=== PATIENT | female | born 1995 | race African-American/Black ===

== ENCOUNTER 2022-08-27 23:35 | Emergency (ER) | payer MEDICAID, SELFPAY ==
[2022-08-27 23:39] VITALS: BP 120/86; PULSE 72; RESP 16; TEMP 36.9; O2SAT 97; BMI 31.4
--- NOTE | 2022-08-28 00:13 | CRLHL7_ITS ---
For Patients: As a result of the Century Cures Act, medical imaging exams and procedure reports are released immediately into your electronic medical record. You may view this report before your referring provider. If you have questions, please contact your health care provider. INDICATION: Right-sided abdominal pain. TECHNIQUE: CT abdomen and pelvis acquired with 90 mL Isovue 370 IV contrast. COMPARISON: Abdomen plain film 20 August 2019 FINDINGS: Lower chest: Unremarkable. Liver: Unremarkable. Spleen: Unremarkable. Pancreas: Unremarkable. Gallbladder and bile ducts: Unremarkable. Kidneys: Unremarkable. Adrenal glands: Unremarkable. GI tract: Unremarkable. Appendix is normal. Vascular structures: Negative. No sign of aneurysm. Lymph nodes: Unremarkable. Miscellaneous: Unremarkable. No free air or significant free fluid. Pelvic Organs: Unremarkable. Bones: Unremarkable for age. IMPRESSION: Unremarkable CT of the abdomen and pelvis. Please note that all CT scans at this facility use dose modulation, iterative reconstruction, and/or weight-based dosing when appropriate to reduce radiation dose to as low as reasonably achievable. Dictated by Miller Viramontes MD @ 08/28/2022 1:38:24 AM (Electronically Signed)
--- NOTE | 2022-08-28 00:14 | ED.GENADULT ---
HPI - General Adult General Chief complaint: Abdominal Pain Stated complaint: pain in rt side Time Seen by Provider: 08/27/22 23:49 Source: patient Mode of arrival: ambulatory Limitations: no limitations History of Present Illness HPI narrative: 27-year-old female presents the emergency department with a 2 and half week history of pain in the right upper quadrant area of the abdomen. Describes it is achy, constant. It does become intermittently sharp and radiates across the left abdomen at times. She has been seen twice thus far for this, reports this evaluation was at [facility]. She is able to pull up her records from her phone and I can see that she had a CBC, comprehensive metabolic panel, urinalysis, wet prep and abdominal x-ray performed. These were all reassuring with the exception of constipation. She was told to start taking MiraLax once daily and she reports that she has done so for the most part, missing a few days along the way. She says she feels very gassy, is having bowel movements at least a couple of days per week. Last bowel movement was 2 days ago. When she 1st had symptoms 2 and half weeks ago, it was accompanied by nausea but there has been no vomiting. There is no blood in her stools. There is no debra diarrhea, vaginal discharge or fevers. She has not tried taking Tylenol or ibuprofen for her pain. She reports her pain is currently 4/10. When asked specifically about any emerging or worsening type symptoms that bring her to the ER in the middle of the night, she says she was just concerned about the chronicity. The provider that she just saw 2 days ago did order her an ultrasound which is scheduled for Monday. This is a little over 24 hours from now. No prior history of similar symptoms prior to 2 and half weeks ago though she states she is prone to constipation. Is able to eat and drink normally. Past medical history is notable for headaches. By her description, it sounds like this is pseudotumor cerebri. She reports use of topiramate for prophylaxis for this with no recent changes in her medications. Denies other medications. Only prior surgery is a tonsillectomy. Denies any pertinent family history. Socially she denies illicit drug use, is a smoker. She works as a shopping and delivery and mail sorter. No pertinent travel ROS is notable for the GI symptoms as above only, otherwise denies times 12 systems. Related Data Home Medications Medication Instructions Recorded Confirmed naproxen 500 mg tablet 500 mg PO BID 08/27/22 08/27/22 rizatriptan 10 mg tablet mg PO 08/27/22 tizanidine 4 mg tablet mg PO 08/27/22 topiramate 50 mg tablet 50 mg PO BID 08/27/22 08/27/22 Allergies Allergy/AdvReac Type Severity Reaction Status Date / Time No Known Drug Allergies Allergy Verified 08/28/22 00:47 PFSH PFS Social History Smoking Status: Current every day smoker How often do you have a drink containing alcohol: never AUDIT-C Alcohol total score: 0 Non-prescribed substance use: denies use Exam Const: Vital Signs, click to edit/add: Vital Signs - 24 hr 08/27/22 23:39 Temperature 98.4 F Pulse Rate [Left P ulse Oximeter] 72 Respiratory Rate 16 Blood Pressure [Ri ght Upper Arm] 120/86 Pulse Oximetry 97 Oxygen Delivery Me thod Room Air Documenting provider has reviewed patient's vital signs: yes Common normals: no apparent distress General appearance: cooperative and comfortable Other: Nontoxic. Appears well nourished well hydrated. HENMT: Common normals: normocephalic Head and scalp: normocephalic Face and sinus: normal facial exam Mouth: oral and palatal mucosa normal Throat: posterior oropharynx normal Eye: Common normals: conjunctivae normal General eye: normal appearance of both eyes Conjunctiva: conjunctiva(e) normal Neck & C-Spine: Common normals: full ROM and no lymphadenopathy Resp: Common normals: normal respiratory effort, no use of accessory muscles and clear to auscultation bilaterally Effort & inspection: able to speak in complete sentences Auscultation: clear to auscultation bilaterally Cardio: Common normals: regular rate, regular rhythm, S1 normal heart sound, S2 normal heart sound and no murmurs Rate: regular rate Rhythm: regular rhythm Heart sounds: S1 normal and S2 normal GI: Common normals: Normal to inspection, nondistended, normoactive bowel sounds present, soft to palpation, no hepatosplenomegaly and no masses Palpation: soft and no hepatosplenomegaly Other: Mildly tender right upper quadrant only. : Common normals: no CVA tenderness Bladder/kidney exam: no CVA tenderness Back & Pelvis: Common normals: no CVA tenderness Extremity: Common normals: normal capillary refill and no pedal edema Neuro: Speech: speech normal Motor exam: strength 5/5 throughout, no tremor noted and no movement abnormalities noted Psych: Appearance: grossly normal Attitude: calm Insight: fair Judgement: fair Skin: Common normals: no rashes or lesions noted General skin exam: no rashes or lesions noted Course Vital Signs Vital signs: Initial Vital Signs Temperature 98.4 F 08/27/22 23:39 Temperature Source Oral 08/27/22 23:39 Pulse Rate 72 08/27/22 23:39 Respiratory Rate 16 08/27/22 23:39 Blood Pressure 120/86 08/27/22 23:39 Blood Pressure Mean 97 08/27/22 23:39 Blood Pressure Position Sitting 08/27/22 23:39 Pulse Oximetry 97 08/27/22 23:39 Oxygen Delivery Method 08/27/22 23:39 Vital Signs Temperature 98.4 F 08/27/22 23:39 Pulse Rate 72 08/27/22 23:39 Respiratory Rate 16 08/27/22 23:39 Blood Pressure 120/86 08/27/22 23:39 Pulse Oximetry 97 08/27/22 23:39 Oxygen Delivery Method 08/27/22 23:39 Temperature 98.4 F 08/27/22 23:39 Pulse Rate 72 08/27/22 23:39 Respiratory Rate 16 08/27/22 23:39 Blood Pressure 120/86 08/27/22 23:39 Pulse Oximetry 97 08/27/22 23:39 Oxygen Delivery Method 08/27/22 23:39 Medical Decision Making MDM Narrative Medical decision making narrative: Exam is reassuring. Prior labs from [place] reviewed on her phone. Prior x-ray reviewed. Counseled patient of mine relatively benign findings on exam. She is concerned about the chronicity and would like a workup. Will repeat CMP, CBC, urinalysis and lipase level as well as a CRP. Findings are more suspicious for persistent constipation I think that her regimen of bowel clearance thus far has been under aggressive and her compliance has been poor. She would like to proceed with CT scan. This is ordered. Update: Patient has not received any interventions in the emergency department as she has remained comfortable. CT and lab findings are reviewed with her and are all completely reassuring. Discussed how in the emergency department in the middle of the night, we will look for emergent issues and I think she may have more chronic issues going on. She will follow up with her primary care doctor and keep her scheduled appointment for her ultrasound on Monday as is planned. I do still think she is constipated. She will be given 2 senna tablets here in the emergency department and we discussed MiraLax 17 g every 8 hours for up to 6 doses to continue her bowel cleanout. Alarm symptoms that would warrant ED presentation reviewed with patient. Lab Data Lab results reviewed: Yes I reviewed the patient's lab results Lab results narrative: Unremarkable Labs: Lab Results 08/28/22 08/28/22 08/28/22 Range/Units 00:29 00:29 00:29 WBC 8.41 (4.50-11.00) K/uL RBC 4.23 (4.00-5.20) m/uL Hgb 13.3 (12.0-16.0) gm/dL Hct 40.1 (33.0-51.0) % MCV 95 (80-100) fL MCH 31 (26-34) pg MCHC 33 (32-36) gm/dL RDW Coeff of Deshawn 12.6 (11.5-15.5) % Plt Count 365 (140-440) K/uL Neut % (Auto) 56.9 (42.0-72.0) % Lymph % (Auto) 28.2 (20-44) % Bonner % (Auto) 5.9 (0.0-11.0) % Eos % (Auto) 7.5 H (0.0-7.0) % Baso % (Auto) 0.8 (0.0-3.0) % Neut # (Auto) 4.78 (1.7-7.0) K/uL Lymph # (Auto) 2.37 (0.90-2.90) K/uL Bonner # (Auto) 0.50 (0.00-0.90) K/UL Eos # (Auto) 0.60 H (0.00-0.50) K/uL Baso # (Auto) 0.07 (0.00-0.30) K/uL Sodium 139 (135-149) mmol/L Potassium 3.7 (3.6-5.1) mmol/L Chloride 108 (96-114) mmol/L Carbon Dioxide 24 (20-32) mmol/L BUN 14 (5-24) mg/dL Creatinine 1.1 (0.5-1.5) mg/dL Estimated Creat Clear 65.16 Estimated GFR 70 ml/min Glucose 92 (60-115) mg/dL Calcium 9.7 (8.4-10.6) mg/dL Total Bilirubin 0.4 (0.1-1.5) mg/dL AST 18 (12-35) U/L ALT 12 (4-35) U/L Alkaline Phosphatase 93 (40-150) U/L C-Reactive Protein < 0.5 L (0.5-1.0) mg/dL Total Protein 7.4 (6.0-8.3) g/dL Albumin 4.5 (3.3-5.0) g/dL Lipase 137 (23-300) U/L HCG, Qual (Negative) Urine Color (Yellow) Urine Appearance (Clear) Urine pH (5.0-8.5) Ur Specific [place] (1.000-1.030) Urine Protein (Negative) Urine Glucose (UA) (Negative) Urine Ketones (Negative) Urine Blood (Negative) Urine Nitrite (Negative) Urine Bilirubin (Negative) Urine Urobilinogen (0.2-1.0) Ur Leukocyte Esterase (Negative) 08/28/22 Range/Units 01:45 WBC (4.50-11.00) K/uL RBC (4.00-5.20) m/uL Hgb (12.0-16.0) gm/dL Hct (33.0-51.0) % MCV (80-100) fL MCH (26-34) pg MCHC (32-36) gm/dL RDW Coeff of Deshawn (11.5-15.5) % Plt Count (140-440) K/uL Neut % (Auto) (42.0-72.0) % Lymph % (Auto) (20-44) % Bonner % (Auto) (0.0-11.0) % Eos % (Auto) (0.0-7.0) % Baso % (Auto) (0.0-3.0) % Neut # (Auto) (1.7-7.0) K/uL Lymph # (Auto) (0.90-2.90) K/uL Bonner # (Auto) (0.00-0.90) K/UL Eos # (Auto) (0.00-0.50) K/uL Baso # (Auto) (0.00-0.30) K/uL Sodium (135-149) mmol/L Potassium (3.6-5.1) mmol/L Chloride (96-114) mmol/L Carbon Dioxide (20-32) mmol/L BUN (5-24) mg/dL Creatinine (0.5-1.5) mg/dL Estimated Creat Clear Estimated GFR ml/min Glucose (60-115) mg/dL Calcium (8.4-10.6) mg/dL Total Bilirubin (0.1-1.5) mg/dL AST (12-35) U/L ALT (4-35) U/L Alkaline Phosphatase (40-150) U/L C-Reactive Protein (0.5-1.0) mg/dL Total Protein (6.0-8.3) g/dL Albumin (3.3-5.0) g/dL Lipase (23-300) U/L HCG, Qual Negative (Negative) Urine Color Yellow (Yellow) Urine Appearance Clear (Clear) Urine pH 7.0 (5.0-8.5) Ur Specific [place] 1.010 (1.000-1.030) Urine Protein Negative (Negative) Urine Glucose (UA) Negative (Negative) Urine Ketones Negative (Negative) Urine Blood Negative (Negative) Urine Nitrite Negative (Negative) Urine Bilirubin Negative (Negative) Urine Urobilinogen 0.2 (0.2-1.0) Ur Leukocyte Esterase Negative (Negative) Imaging Data CT scan - abdomen: My impression: Constipation Radiologist's impression: IMPRESSION: Unremarkable CT of the abdomen and pelvis. Discharge Plan Discharge Clinical Impression: Constipation Patient Disposition: Home, Self-Care Condition: Stable Instructions: Constipation (ED) Additional Instructions: There continues to be no signs of any major, emergent problems with your abdomen. As we discussed, my test will look to see if the liver is obstructed or infected. These are the emergent type problems that can happen with the gallbladder. Sometimes the gallbladder can still have spasm which is an ongoing problem and is not emergent. I recommend that you keep the appointment for your ultrasound on Monday and follow up with her primary care doctor to discuss the results. If it continues to be normal and you have successfully cleaned out the constipation the next step is to do a HIDA scan. Again, these look at chronic problems rather than emergent issues. All of your blood work is completely reassuring as well. There is no inflammation, no infection, the liver is function normally, kidney function, electrolytes all of these things are again reassuring. I do recommend that you be more aggressive with your bowel regimen. I have given you to senna tablets, a stimulant laxative. This will cause some cramps. This will also help move the stool through more efficiently for you. When you get home, take another dose of MiraLax. This is 17 g in 8 oz of liquid. Continue the MiraLax every 8 hours for the next 2 days, stopping if you are having to liquid stools. Call your primary care provider for advice if your symptoms are not improving on Monday. Remember the alarm symptoms that we discussed as indications to come to emergency room. Come to emergency room if you are unable to hold down liquids of any kind for more than 24 hours, food for more than 3 days, you have severe abdominal pain with a fever over 100.4. You are stooling large amounts of blood or vomiting blood. You may return to full duty at work as soon as possible, no restrictions. Activity Level: No Restrictions Discharge Diet: Regular Prescriptions: No Action tizanidine 4 mg tablet PO rizatriptan 10 mg tablet PO naproxen 500 mg tablet 500 mg PO BID topiramate 50 mg tablet 50 mg PO BID Follow Up/Referrals: Provider,Not a Local [Primary Care Provider] - Stand Alone Forms: [email or web address] Info Instructions
[2022-08-28 00:38] LABS: Basophils Absolute Auto 0.07 K/uL (0.00-0.30); Basophils Percent Auto 0.8 % (0.0-3.0); Eosinophils Percent Auto 7.5 % (0.0-7.0); Hematocrit 40.1 % (33.0-51.0); Hemoglobin* 13.3 gm/dL (12.0-16.0); Immature Granulocytes Abs Auto 0.06 K/uL (0.00-0.30); Immature Granulocytes Pct Auto 0.7 %; Lymphocytes Absolute Auto 2.37 K/uL (0.90-2.90); Lymphocytes Percent Auto 28.2 % (20-44); Mean Corpuscular HGB Conc 33 gm/dL (32-36); Mean Corpuscular Hemoglobin 31 pg (26-34); Mean Corpuscular Volume 95 fL (80-100); Monocytes Percent Auto 5.9 % (0.0-11.0); Neutrophils Absolute Auto 4.78 K/uL (1.7-7.0); Neutrophils Percent Auto 56.9 % (42.0-72.0); Platelet Count* 365 K/uL (140-440); RDW Coefficient of Variation % 12.6 % (11.5-15.5); Red Blood Count 4.23 m/uL (4.00-5.20); White Blood Count* 8.41 K/uL (4.50-11.00)
[2022-08-28 00:46] LABS: Slide Review Reflex No
[2022-08-28 01:15] LABS: Albumin* 4.5 g/dL (3.3-5.0); Chloride* 108 mmol/L (96-114); Potassium* 3.7 mmol/L (3.6-5.1); Sodium* 139 mmol/L (135-149)
[2022-08-28 01:17] LABS: Lipase* 137 U/L (23-300)
[2022-08-28 01:18] LABS: Alkaline Phosphatase* 93 U/L (40-150); Aspartate Amino Transferase* 18 U/L (12-35); Bilirubin Total* 0.4 mg/dL (0.1-1.5); Carbon Dioxide* 24 mmol/L (20-32); Creatinine* 1.1 mg/dL (0.5-1.5); Est. Creatinine Clearance* 65.16; Estimated Glomerular Filt Rate 70 ml/min; Total Protein* 7.4 g/dL (6.0-8.3)
[2022-08-28 01:19] LABS: Alanine Aminotransferase* 12 U/L (4-35); Blood Urea Nitrogen* 14 mg/dL (5-24); Calcium* 9.7 mg/dL (8.4-10.6); Glucose* 92 mg/dL (60-115)
[2022-08-28 01:21] LABS: C Reactive Protein* < 0.5 mg/dL (0.5-1.0)
[2022-08-28 01:49] LABS: Appearance Urine Clear (Clear); Bilirubin Urine Negative (Negative); Blood Urine Negative (Negative); Color Urine Yellow (Yellow); Glucose Urine Negative (Negative); Ketones Urine Negative (Negative); Leukocyte Esterase Urine Negative (Negative); Nitrite Urine Negative (Negative); Protein Urine Negative (Negative); Urobilinogen Urine 0.2 (0.2-1.0)
[2022-08-28 01:51] LABS: HCG Qualitative* Negative (Negative)
[2022-08-28 02:10] VITALS: BP 122/72; PULSE 70; RESP 16; O2SAT 99
== END 2022-08-28 02:12 | disposition home or self-care (01) ==
PROVIDERS: Emergency Provider Family Medicine
DX: K59.00 Constipation, unspecified (principal)
CPT/HCPCS: 36415; 74177; 80053; 81003; 83690; 84703; 85025; 86140; 99283; 99284; Q9967

== ENCOUNTER 2023-03-22 23:04 | Emergency (ER) | payer MEDICAID, SELFPAY ==
[2023-03-22 23:17] VITALS: BP 155/89; PULSE 85; RESP 18; TEMP 36.8; O2SAT 99; BMI 33.5
--- NOTE | 2023-03-22 23:27 | ED_ITS ---
HPI - General Adult General Time Seen by Provider: 23:27 Date Seen: 03/22/23 Chief complaint: Anxiety Stated complaint: blood pressure high Time Seen by Provider: 03/22/23 23:27 Source: patient and RN notes reviewed Mode of arrival: ambulatory Limitations: no limitations History of Present Illness HPI narrative: This 27-year-old female was referred in by clinic triage with concern of elevated blood pressures today. She went to the dentist in the did a wrist machine on her, got 170/108. She later went to get CT food and was at a pharmacy with a friend, checked it there and was 130/88. She rechecked it after she purchased the CT food was 111/80. When she got home, use the neighbors cough and got 130s over 80. She states this made her quite anxious. She does have generalized anxiety disorder and panic disorder. She has underlying migraines. For medicine she takes Topamax and naproxen. She recently went to the clinic for UTI about 2 weeks ago and was on antibiotics, did complete them. Her Pap smear has been done it is pending. She is scheduled to go in for cholesterol and glucose screen next week. She is trying to get updated on her preventative services. She did get a pneumococcal and flu vaccine yesterday, started noting some rhinorrhea and feeling tired last night. Today she does feel more exhausted, did feel some chest discomfort an on questioning she feels like she has just been a chronic panic attack. This makes her worried. She does not drink any alcohol as there is addiction issues in her family. She states her mom has hypertension but does alcohol and drugs. Patient endorses significant smoking, she does drink a lot of soda and caffeine, does not eat very healthy. Tonight she had some [employer] and was trying to relax playing a video game and could not do so, thus she is here in the ER. Related Data Home Medications Medication Instructions Recorded Confirmed naproxen 500 mg tablet 500 mg PO BID 08/27/22 03/22/23 topiramate 50 mg tablet 50 mg PO BID 08/27/22 03/22/23 Allergies Allergy/AdvReac Type Severity Reaction Status Date / Time No Known Drug Allergies Allergy Verified 03/22/23 23:19 Review of Systems Status of ROS: Reports: 6 or more systems reviewed and unremarkable except as noted in History and below PFSH PFSH Social History Smoking Status: Current every day smoker How often do you have a drink containing alcohol: never AUDIT-C Alcohol total score: 0 Non-prescribed substance use: denies use Exam Const: Vital Signs, click to edit/add: Vital Signs - 24 hr 03/22/23 23:17 Temperature 98.2 F Pulse Rate [Right Pulse Oximeter] 85 Respiratory Rate 18 Blood Pressure [Ri ght Upper Arm] 155/89 H Pulse Oximetry 99 Oxygen Delivery Me thod Room Air This 27-year-old female is alert, interactive, no apparent distress. Sclera clear come expect muscles intact, normal facial function, speech is normal. Neck is supple, no cervical adenopathy no thyromegaly masses or nodules lungs are clear, good air entry, no wheezing or crackles. CV regular rate and rhythm, no murmur, normal S1-S2, no S3 or S4. She is ambulatory in the ED of her own accord. There is no focal neurologic deficits. She overall initially seemed quite anxious, through our talking and interaction, seemed to settle and be more at rest. Documenting provider has reviewed patient's vital signs: yes Course Course ED Course: Spent significant time discussing with patient hypertension and diagnosis. We did discuss even if someone is diagnosed with hypertension, if blood pressures are lower in the hypertension range lifestyle modification is recommended 1st line. I highly support her getting her cholesterol and glucose screening done next week, this would be a perfect time to follow up in clinic for a blood pressure check. Did review the variability in the monitoring devices and the in accuracy that can happen. Her blood pressure here tonight is mildly elevated but she is in an ER setting, is stressed out about this and most definitely anxious. We did discuss that frequently blood pressures can be elevated in the ER due to those exact circumstances. We spent some time talking about healthy lifestyle and recommendations for patient's with hypertension which do include but are not limited to smoking cessation, minimizing sodium intake/heart healthy lifestyle, would recommend minimizing soda and caffeine as well. She does not have any evidence of any end organ damage or symptoms. I think her symptomatology is more anxiety, she might be suffering from a little side effects from her vaccinations. We did discuss doing EKG and point of care troponin to help alleviate her concerns. She would like to do this. I do think that is reasonable. As far as further workup for hypertension, would recommend she get screened appropriately inappropriate clinics setting 1st, if diagnose than the labs could be done at that time. Do not believe they are indicated at this moment. Reevaluation(s) Time of Reevaluation #1: 00:11 Reevaluation #1: Reviewed the EKG is not showing acute changes, troponin is completely normal. She admits that she was in a lot of pain due to her teeth today, pain can increase blood pressure too. Vital Signs Vital signs: Initial Vital Signs Temperature 98.2 F 03/22/23 23:17 Temperature Source Temporal Artery Scan 03/22/23 23:17 Pulse Rate 85 03/22/23 23:17 Respiratory Rate 18 03/22/23 23:17 Blood Pressure 155/89 H 03/22/23 23:17 Blood Pressure Mean 111 H 03/22/23 23:17 Blood Pressure Position Sitting 03/22/23 23:17 Pulse Oximetry 99 03/22/23 23:17 Oxygen Delivery Method Room Air 03/22/23 23:17 Vital Signs Temperature 98.2 F 03/22/23 23:17 Pulse Rate 85 03/22/23 23:17 Respiratory Rate 18 03/22/23 23:17 Blood Pressure 155/89 H 03/22/23 23:17 Pulse Oximetry 99 03/22/23 23:17 Oxygen Delivery Method Room Air 03/22/23 23:17 Temperature 98.2 F 03/22/23 23:17 Pulse Rate 85 03/22/23 23:17 Respiratory Rate 18 03/22/23 23:17 Blood Pressure 155/89 H 03/22/23 23:17 Pulse Oximetry 99 03/22/23 23:17 Oxygen Delivery Method Room Air 03/22/23 23:17 Medical Decision Making Lab Data Lab results reviewed: Yes I reviewed the patient's lab results Labs: Lab Results 03/22/23 Range/Units 23:45 POC Troponin I 0.00 L (0.01-0.04) ng/ml ECG Data Attestation: I personally reviewed and interpreted this ECG as follows: (Normal sinus rhythm, 74 beats per minute. Flipped T-waves in lead 3 and V3, V4 without any ST segment abnormalities. QT corrected 399 milliseconds.) Prior ECG tracings: not available for review Discharge Plan Discharge Clinical Impression: Elevated blood pressure reading Patient Disposition: Home, Self-Care Condition: Stable Instructions: DASH Eating Plan (ED), Low-Sodium Diet (ED), Hypertension (ED) Additional Instructions: Need to follow up in clinic next week and have your blood pressure rechecked there. It is important that you have your blood pressure checked on regulated machines to ensure an accurate reading. Regardless of your blood pressure being elevated or not, it is recommended that you consider smoking cessation, try Health here lie cell with eating habits like minimizing sodium, decreasing caffeine and soda intake. There is vast information on heart healthy eating, healthy eating that is on the Internet. Prescriptions: No Action naproxen 500 mg tablet 500 mg PO BID topiramate 50 mg tablet 50 mg PO BID Follow Up/Referrals: Provider,Not a Local [Primary Care Provider] - Stand Alone Forms: [employer] Info Instructions
[2023-03-23 00:50] VITALS: BP 132/74; PULSE 79; RESP 18; TEMP 36.7; O2SAT 99
== END 2023-03-23 00:25 | disposition home or self-care (01) ==
LOC: ED 23:52
PROVIDERS: Emergency Provider Family Medicine
DX: R03.0 Elevated blood-pressure reading, without diagnosis of hypertension (principal)
CPT/HCPCS: 84484; 93005; 99283; 99284

== ENCOUNTER 2023-08-07 20:17 | Emergency (ER) | payer MEDICAID, SELFPAY ==
[2023-08-07 20:30] VITALS: BP 143/89; PULSE 106; RESP 18; TEMP 37.3; O2SAT 99; BMI 35.2
--- NOTE | 2023-08-07 21:58 | ED_ITS ---
HPI - General Adult General Time Seen by Provider: 21:58 Date Seen: 08/07/23 Chief complaint: Head Injury/Pain Stated complaint: Difficulty breathing Time Seen by Provider: 08/07/23 21:58 Source: patient Limitations: no limitations History of Present Illness HPI narrative: Radhika is a very pleasant 28-year-old female with a history of tobacco use, fall in May who comes to the emergency room for evaluation regarding racing heart. Patient notes that over the past few days she has had strange occurrences and racing of her heart every time she moves her head to the right or moves her eyes to the right. She states this gives a strange feeling in her head that is not a pain and that is hard to describe. She states that that causes her heart to race and when that happens she gets wheezing and a hard time breathing. She notes that she does smoke but she has not had any recent lung problems. One week ago she had sinus symptoms but these have all resolved. Tonight she had an episode where she could not take a deep breath and her legs felt much weaker. She feels like it is harder for her to breathe. Related Data Home Medications Medication Instructions Recorded Confirmed naproxen 500 mg tablet 500 mg PO BID 08/27/22 08/07/23 topiramate 50 mg tablet 50 mg PO BID 08/27/22 08/07/23 lamotrigine .ROUTE 08/07/23 Allergies Allergy/AdvReac Type Severity Reaction Status Date / Time No Known Drug Allergies [facility]07[facility]23 20[facility] Medical History (Updated 08/08/23 @ 01:31 by Ximena Angulo MD) Anxiety ?F41.9 - Anxiety disorder, unspecified (ICD-10) Surgical History (Updated 03/23/23 @ 00:49 by Yasmany Gómez RN) No significant past surgical history Social History Smoking Status: Current every day smoker How often do you have a drink containing alcohol: never AUDIT-C Alcohol total score: 0 Non-prescribed substance use: denies use Exam Const: Vital Signs, click to edit/add: Vital Signs - 24 hr 08/07/23 20:30 Temperature 99.2 F Pulse Rate [Pulse Oximeter] 106 H Respiratory Rate 18 Blood Pressure [Ri ght Upper Arm] 143/89 H Pulse Oximetry 99 Oxygen Delivery Me thod Room Air Course Course ED Course: Patient is noted to have experience papilledema in 2021 with follow-up MRI and LP. There was concerns regarding a tumor given the papilledema but this was not found and the increased pressures were thought to be related to weight gain. Patient had been placed on topiramate, had been taken off of it and is now back on it. Vital Signs Vital signs: Initial Vital Signs Temperature 99.2 F 08/07/23 20:30 Temperature Source Temporal Artery Scan 08/07/23 20:30 Pulse Rate 106 H 08/07/23 20:30 Respiratory Rate 18 08/07/23 20:30 Blood Pressure 143/89 H 08/07/23 20:30 Blood Pressure Mean 107 H 08/07/23 20:30 Blood Pressure Position Sitting 08/07/23 20:30 Pulse Oximetry 99 08/07/23 20:30 Oxygen Delivery Method Room Air 08/07/23 20:30 Vital Signs Temperature 99.2 F 08/07/23 20:30 Pulse Rate 106 H 08/07/23 20:30 Respiratory Rate 18 08/07/23 20:30 Blood Pressure 143/89 H 08/07/23 20:30 Pulse Oximetry 99 08/07/23 20:30 Oxygen Delivery Method Room Air 08/07/23 20:30 Temperature 99.2 F 08/07/23 20:30 Pulse Rate 106 H 08/07/23 20:30 Respiratory Rate 18 08/07/23 20:30 Blood Pressure 143/89 H 08/07/23 20:30 Pulse Oximetry 99 08/07/23 20:30 Oxygen Delivery Method Room Air 08/07/23 20:30 Medical Decision Making MDM Narrative Medical decision making narrative: 1. Tachycardia-patient notes racing heart. She seems to be relating this to turn her head to the right. Head CT who has not within normal limits and I am not sure if this is a cause and effect type of issue. She did demonstrate to me how she would turn her head to the right or move her eyes to the right but was unable to recreate this occurrence. Her EKG did show some nonspecific T-wave abnormality with depression throughout an inversion noted in the inferior lateral leads but she does not complain of chest pain at this time and has 2- troponins. She had no murmur rub, leukocytosis and her D-dimer was normal to indicate a pericarditis myocarditis or acute coronary syndrome. She is now with a heart rate of 70 without any pharmacological intervention or fluids. 2. Headache-patient notes falling around [place] time and hitting the back of her head with subsequent 2 weeks of significant discomfort. She did not lose consciousness at that time nor did she seek any medical attention. Head CT tonight shows possibility of a subdural hygroma right lateral frontal aspect on CT. Possibility of a subarachnoid cyst verses subdural hygroma. We do have access to previous head CT and her having that compared. Patient describes papilledema in 2021 with subsequent MRI and Neurology consultation. She notes a return of some of the symptoms which she describes tonight when she discontinued her topiramate. She is now back using that medication. I do encourage follow- up for repeat eye exam. I attempted exam here tonight but I just am unable to see everything and is so tired he to be a may able to make an assessment regarding the optic nerve integrity. She has no visual changes tonight. 3. Wheezing and shortness of breath-chest x-ray appears clear, D-dimer is normal, O2 sats at 99%. I am wondering if patient is experiencing panic. She has tested negative for COVID, influenza and RSV. 4. Disposition- at this time we are asking Radiology to do a comparison with head CT forearm [address] comparison has been accomplished. Radiology now notes this is probably artifact. Feels that this head CT is normal. At this time will have patient follow-up with her neurologist for recheck. She may need further imaging. Will give her copy of the results plus a disc with the images. Reassurance at this time. Return to the emergency room for worsening symptoms. Medical Records Medical records reviewed: Yes I reviewed the patient's medical records Lab Data Lab results reviewed: Yes I reviewed the patient's lab results Labs: Lab Results 08/07/23 08/08/23 Range/Units 22:45 00:15 WBC 7.76 (4.50-11.00) K/uL RBC 4.51 (4.00-5.20) m/uL Hgb 14.0 (12.0-16.0) gm/dL Hct 42.5 (33.0-51.0) % MCV 94 (80-100) fL MCH 31 (26-34) pg MCHC 33 (32-36) gm/dL RDW Coeff of Deshawn 12.6 (11.5-15.5) % Plt Count 387 (140-440) K/uL Neut % (Auto) 65.6 (42.0-72.0) % Lymph % (Auto) 21.0 (20-44) % [place] % (Auto) 6.4 (0.0-11.0) % Eos % (Auto) 5.8 (0.0-7.0) % Baso % (Auto) 0.3 (0.0-3.0) % Neut # (Auto) 5.09 (1.7-7.0) K/uL Lymph # (Auto) 1.63 (0.90-2.90) K/uL [place] # (Auto) 0.50 (0.00-0.90) K/UL Eos # (Auto) 0.45 (0.00-0.50) K/uL Baso # (Auto) 0.02 (0.00-0.30) K/uL Abs Immat Gran (auto) 0.07 (0.00-0.30) K/uL Imm/Tot Granulo (auto) 0.9 % D-Dimer Quant (PE/DVT) 0.25 (0.00-0.50) ug/ml Sodium 138 (135-149) mmol/L Potassium 3.8 (3.6-5.1) mmol/L Chloride 108 (96-114) mmol/L Carbon Dioxide 20 (20-32) mmol/L Anion Gap 10 (7-15) mEq/L BUN 9 (5-24) mg/dL Creatinine 0.9 (0.5-1.5) mg/dL Estimated Creat Clear 78.93 Estimated GFR 88 ml/min Glucose 90 (60-115) mg/dL Calcium 9.5 (8.4-10.6) mg/dL Magnesium 2.4 (1.5-2.6) mg/dL SARS-CoV-2 (PCR) Negative SARS-CoV-2 (Negative) Influenza Type A (PCR) Negative PCR FLU A (Negative) Influenza Type B (PCR) Negative PCR FLU B (Negative) RSV (PCR) Negative PCR RSV (Negative) Lab Acknowledgement Test Added POC Troponin I 0.00 L (0.01-0.04) ng/ml Imaging Data Chest x-ray: Attestation: I have reviewed the pertinent imaging results. My impression: No obvious infiltrate. Radiologist's impression: Upright PA and lateral radiographs of the chest were performed. Comparison: No previous studies are currently available for comparison. The lungs appear clear and there are no pleural effusions. Heart size and pulmonary vasculature appear normal. Visualized bones show no significant findings. IMPRESSION: No acute intrathoracic abnormality identified. CT scan - head: Attestation: I have reviewed the pertinent imaging results. Radiologist's impression: Brain parenchyma: The narvaez-white differentiation is normal. No sign of mass, hemorrhage, or midline shift. Skull base and calvarium: The visualized paranasal sinuses and mastoid air cells demonstrate no acute or significant findings. The visualized orbits are grossly unremarkable. No skull fractures. IMPRESSION: 1. Mild prominence of extra-axial CSF space along the right lateral frontal convexity. While this may represent an underlying arachnoid cyst, given the history of prior trauma a subdural hygroma would be an additional differential consideration. 2. Otherwise no acute intracranial abnormality. ECG Data Attestation: I personally reviewed and interpreted this ECG as follows: Interpretation: EKG by my read shows sinus rhythm. T-wave flattening noted in the inferior lateral leads. Discharge Plan Discharge Clinical Impression: Pseudotumor cerebri, Anxiety, Tachycardia Patient Disposition: Home, Self-Care Condition: Improved Additional Instructions: I suggest follow-up with your neurologist. Please take your images as well as your CT report. Tonight, you have 2- troponins or no evidence of a heart ailment. Your COVID and influenza swab was negative. You have a normal electrolyte panel as well as magnesium. Your white count and hemoglobin are normal. Follow-up with your primary MD for further evaluation. Return to the emergency room as needed. Prescriptions: No Action lamotrigine [Lamictal ODT] .ROUTE naproxen 500 mg tablet 500 mg PO BID topiramate 50 mg tablet 50 mg PO BID Follow Up/Referrals: Provider,Not a Local [Primary Care Provider] - Stand Alone Forms: [employer] Info Instructions
--- NOTE | 2023-08-07 22:26 | CT_ITS ---
Patient: JAVIER BATEMAN Facility:?[facility] Patient ID:?[id number] Site Patient ID:?[id number]. Site :?1995 Study:?CT-Head W/O-08/07/2023 11:17:46 PM Ordering Physician:JONAS Final Report: INDICATION: Headache. TECHNIQUE: CT head without contrast. COMPARISON: None. FINDINGS: CSF spaces: Mild prominence of extra-axial CSF space along the right lateral frontal convexity. Brain parenchyma: The narvaez-white differentiation is normal. No sign of mass, hemorrhage, or midline shift. Skull base and calvarium: The visualized paranasal sinuses and mastoid air cells demonstrate no acute or significant findings. The visualized orbits are grossly unremarkable. No skull fractures. IMPRESSION: 1. Mild prominence of extra-axial CSF space along the right lateral frontal convexity. While this may represent an underlying arachnoid cyst, given the history of prior trauma a subdural hygroma would be an additional differential consideration. 2. Otherwise no acute intracranial abnormality. Please note that all CT scans at this facility use dose modulation, iterative reconstruction, and/or weight-based dosing when appropriate to reduce radiation dose to as low as reasonably achievable. Dictated by Ga Chavez MD @ 08/08/2023 12:09:35 AM ----- ADDENDUM ----- Prior CT head dated 07/28/2020 made available for comparison. Mild prominence of extra-axial CSF space along the right lateral frontal convexity appears more linear on the prior study and likely represents artifact. Given similar findings on the current examination, this finding is likely also artifactual. No acute intracranial abnormality. Dictated by Ga Chavez MD @ Aug 08 2023 12:45AM Signed by:?Ga Chavez MD @08/08/2023 12:09:35 AM (Electronic Signature)
--- NOTE | 2023-08-07 22:26 | XR_ITS ---
Patient: JAVIER BATEMAN Facility:?[facility] Patient ID:?[id number] Site Patient ID:?[id number]. Site :?1995 Study:?XRay-Chest 2V-08/07/2023 11:18:39 PM Ordering Physician:JONAS Final Report: INDICATION: SOB CHEST, PA AND LATERAL Upright PA and lateral radiographs of the chest were performed. Comparison: No previous studies are currently available for comparison. The lungs appear clear and there are no pleural effusions. Heart size and pulmonary vasculature appear normal. Visualized bones show no significant findings. IMPRESSION: No acute intrathoracic abnormality identified. NATALIIA WILBURN MD [facility] Dictated by: Lencho Wilburn MD @ 08/08/2023 00:09:35 Signed by:?Lencho Wilburn MD @08/08/2023 12:09:35 AM (Electronic Signature)
[2023-08-07 22:51] LABS: Basophils Absolute Auto 0.02 K/uL (0.00-0.30); Basophils Percent Auto 0.3 % (0.0-3.0); Eosinophils Absolute Auto 0.45 K/uL (0.00-0.50); Eosinophils Percent Auto 5.8 % (0.0-7.0); Hematocrit 42.5 % (33.0-51.0); Immature Granulocytes Abs Auto 0.07 K/uL (0.00-0.30); Immature Granulocytes Pct Auto 0.9 %; Lymphocytes Absolute Auto 1.63 K/uL (0.90-2.90); Mean Corpuscular HGB Conc 33 gm/dL (32-36); Mean Corpuscular Hemoglobin 31 pg (26-34); Mean Corpuscular Volume 94 fL (80-100); Monocytes Percent Auto 6.4 % (0.0-11.0); Neutrophils Absolute Auto 5.09 K/uL (1.7-7.0); Neutrophils Percent Auto 65.6 % (42.0-72.0); Platelet Count* 387 K/uL (140-440); RDW Coefficient of Variation % 12.6 % (11.5-15.5); Red Blood Count 4.51 m/uL (4.00-5.20); White Blood Count* 7.76 K/uL (4.50-11.00)
[2023-08-07 23:21] LABS: Chloride* 108 mmol/L (96-114); Sodium* 138 mmol/L (135-149)
[2023-08-07 23:23] LABS: Slide Review Reflex No
[2023-08-07 23:24] LABS: Anion Gap 10 mEq/L (7-15); Blood Urea Nitrogen* 9 mg/dL (5-24); Carbon Dioxide* 20 mmol/L (20-32); Creatinine* 0.9 mg/dL (0.5-1.5); Est. Creatinine Clearance* 78.93; Estimated Glomerular Filt Rate 88 ml/min; Glucose* 90 mg/dL (60-115); Potassium* 3.8 mmol/L (3.6-5.1)
[2023-08-07 23:25] LABS: Calcium* 9.5 mg/dL (8.4-10.6)
[2023-08-07 23:28] LABS: PCR FLU A Negative PCR FLU A (Negative); PCR FLU B Negative PCR FLU B (Negative); PCR RSV Negative PCR RSV (Negative); SARS PCR* Negative SARS-CoV-2 (Negative)
[2023-08-07 23:58] LABS: Magnesium* 2.4 mg/dL (1.5-2.6)
[2023-08-08 12:40] LABS: D Dimer Quantitative* < 0.27 ug/ml (0.00-0.50)
== END 2023-08-08 01:37 | disposition home or self-care (01) ==
PROVIDERS: Emergency Provider Family Medicine
DX: R00.0 Tachycardia, unspecified (principal); G93.2 Benign intracranial hypertension; R51.9 Headache, unspecified
CPT/HCPCS: 36415; 70450; 71046; 80048; 83735; 84484; 85025; 85379; 87631; 93005; 99284; 99285

== ENCOUNTER 2023-10-18 16:23 | Outpatient (CLI) | payer MEDICAID, SELFPAY | END 2023-10-18 16:24 | disposition home or self-care (01) | LOC: NFLDREF 10-20 10:50 | PROVIDERS: PCP Nurse Practitioner Family; Visit Provider Nurse Practitioner Family | DX: R30.0 Dysuria (principal) | CPT/HCPCS: 87086 ==

== ENCOUNTER 2025-01-14 08:12 | Outpatient (CLI) | payer MEDICAID, SELFPAY ==
--- NOTE | 2025-01-14 08:45 | CRLHL7_ITS ---
For Patients: As a result of the Cures Act, medical imaging exams and procedure reports are released immediately into your electronic medical record. You may view this report before your referring provider. If you have questions, please contact your health care provider. DIGITAL DIAGNOSTIC LEFT MAMMOGRAM USING TOMOSYNTHESIS AND COMPUTER-AIDED DETECTION LEFT BREAST ULTRASOUND CLINICAL HISTORY: LEFT breast lump. COMPARISON: None. TECHNIQUE: Digital LEFT mammogram in two projections with computer-aided detection. Tomosynthesis was used in this interpretation. Real-time ultrasound imaging of LEFT breast with imaging documentation. Scanning was performed by both the technologist and the radiologist. BREAST COMPOSITION: The breasts are heterogeneously dense, which may obscure small masses. FINDINGS: 3D CC/MLO LEFT breast mammogram images submitted. No suspicious masses or architectural distortion. No suspicious calcifications. No adenopathy. Targeted LEFT breast ultrasound performed in the area of concern adjacent to the LEFT nipple. Normal breast tissue is present. No suspicious mass or fluid collection. No evidence of papilloma. IMPRESSION: No suspicious findings. RECOMMENDATIONS: Clinical follow-up. Age-appropriate screening mammography. A lay language report of this examination will be provided to the patient. BI-RADS Category 2: Benign Dictated by Samm Caban MD @ 01/14/2025 9:49:46 AM jj/Dictated by: Samm Caban MD @ 01/14/2025 9:49:00 AM (Electronically Signed)
--- NOTE | 2025-01-14 09:15 | CRLHL7_ITS ---
For Patients: As a result of the Cures Act, medical imaging exams and procedure reports are released immediately into your electronic medical record. You may view this report before your referring provider. If you have questions, please contact your health care provider. SEE DIGITAL DIAGNOSTIC LEFT MAMMOGRAM PERFORMED SAME DAY CRL:yina bran/Dictated by: Samm Caban MD @ 01/14/2025 9:49:00 AM (Electronically Signed)
== END 2025-01-14 08:13 | disposition home or self-care (01) ==
LOC: MAMMO 08:13
DX: N63.20 Unspecified lump in the left breast, unspecified quadrant (principal)
CPT/HCPCS: 76642; 77065; G0279